=== PATIENT | male | born 1965 | race Caucasian/White ===

== ENCOUNTER → 2016-11-08 | Outpatient (CLI) | payer OTHER | LOC: GMAL 16:18 | PROVIDERS: ATTEND Family Medicine | DX: R74.0 Nonspecific elevation of levels of transaminase and lactic acid dehydrogenase [LDH] (principal) ==

== ENCOUNTER → 2018-08-27 | Outpatient (CLI) | payer BC | LOC: GMAL 11:46 | PROVIDERS: ATTEND Family Medicine | DX: Z00.01 Encounter for general adult medical examination with abnormal findings (principal) ==

== ENCOUNTER 2018-11-30 05:34 | Day surgery (SDC) | payer BC ==
--- NOTE | 2018-11-29 12:24 | SSS ---
CHIEF COMPLAINT: Need for screening colonoscopy. HISTORY OF PRESENT ILLNESS: Mr. Salvador is a 53 year-old male who presents to my office for routine followup. He is due for screening colonoscopy. He has no symptoms referable to his bowels, no abdominal pain, changes in his bowel habits or blood in the stool. He has had no weight related changes. Risks and benefits were discussed and he is agreeable with proceeding. PAST MEDICAL HISTORY: 1. Hyperlipidemia. 2. Hypertension. He had an echocardiogram in December of 2010 that showed an ejection fraction of 69% and moderate left atrial enlargement at 5.1 cm and left ventricular hypertrophy. 3. Chronic knee pain. 4. Type 2 diabetes diagnosed in March of 2011 with a hemoglobin A1c of 6.4. 5. Tension headaches. 6. Obstructive sleep apnea diagnosed in 2010. He does use CPAP. This does help with his blood pressure some but not really his fatigue. PAST SURGICAL HISTORY: 1. Left forearm fracture in the first grade. 2. Three surgeries on his left knee, the first in 1977 when he had ligaments repaired and cartilage removed. The second and third surgeries in 1979 and 1980. He again had cartilage removed and the last one was arthroscopic. 3. Left shoulder surgery by Dr. Macario in 2006. 4. Left total knee arthroplasty by Dr. Alcantara on 11/02/13. This was complicated by decreased range of motion requiring manipulation under anesthesia on 01/07/14. He still has difficulties with range of motion on this knee. CURRENT MEDICATIONS: 1. Hydrochlorothiazide. 2. Lisinopril. 3. Lipitor. 4. Bystolic. 5. Allopurinol. 6. Multivitamins. 7. Potassium 1 a day. ALLERGIES: SULFA. FAMILY HISTORY: Father at 65 from lymphoma. He also had hypertension and borderline diabetes. Mother at 84 from a broken femur. She got out of the hospital and developed rough breathing and later. She had arthritis, hyperlipidemia, hypothyroidism and osteoarthritis. He has 1 brother in good health, 2 sisters in good health and a stepdaughter in good health. SOCIAL HISTORY: He is . 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 He quit smoking around age 23 only having a 7 pack year history. He drinks once per month, typically beer. REVIEW OF SYSTEMS: Negative except as per History of Present Illness. PHYSICAL EXAMINATION: VITAL SIGNS: Blood pressure 124/80, height 6', weight 283. Pulse 68. GENERAL: He is awake and alert in no acute distress. HEENT: Unremarkable. NECK: Supple. CHEST: Lungs are clear. CARDIOVASCULAR: Regular rate and rhythm without appreciable murmurs. ABDOMEN: Benign. EXTREMITIES: Without edema. NEUROLOGIC: Nonfocal. RECTAL: Deferred until time of colonoscopy. ASSESSMENT: 1. Need for screening colonoscopy. PLAN: Colonoscopy on 11/30/18. #[id number] MTDD
[2018-11-30] MEDS ORDERED: LACTATED RINGERS 1,000 ML ONE (06:48)
[2018-11-30] MEDS ORDERED: fentaNYL CITRATE INJ 50 MCG/ML AMP ONE (07:23)
[2018-11-30] MEDS ORDERED: MIDAZOLAM INJ 2 MG/2 ML VIAL ONE (07:23)
[2018-11-30 08:24] VITALS: O2SAT 94
[2018-11-30 08:52] VITALS: BP 117/81; TEMP 97.1
--- NOTE | 2018-11-30 09:11 | OP ---
DATE OF PROCEDURE: 11/30/18 PREOPERATIVE DIAGNOSIS: 1. Screening colonoscopy. POSTOPERATIVE DIAGNOSIS: 1. Normal colon to the cecum. 2. Poor prep in the proximal half of the colon. 3. Grade 1 to 2 internal hemorrhoids. PROCEDURE: 1. Colonoscopy. SURGEON: Matthieu Kovacs MD. ESTIMATED BLOOD LOSS: None. COMPLICATIONS: No immediate complications. ANESTHESIA: Propofol 300 mg, Versed 2 mg and fentanyl 1 mL administered intravenously via Fly Castillo CRNA. TECHNIQUE: After informed consent was obtained from the patient, the patient was taken to the Endoscopy Suite and placed in the left lateral decubitus position. Incremental doses of medications were given intravenously until adequate sedation was obtained. Digital rectal examination was performed. The prostate was rather high and only the bottom half could be felt easily, but it was small and normal feeling. Vital signs were monitored throughout the procedure. Supplemental oxygen was administered throughout the procedure. After digital rectal exam was performed, the colonoscope was then advanced into the patient's rectum and up through the sigmoid, descending, transverse and ascending colon to the level of the cecum. A little bit of manual abdominal pressure needed to be applied to fully reach the cecum, but the loop was gotten out. From about the proximal transverse colon to the cecum, the prep was quite poor. There was not a lot of solid stool, but there was copious amount of liquid stool that was thick and stuck to the jerome, making efforts to wash it off in an efficient manner nearly impossible. There was a great deal of this in the cecum. Some of this was washed out and suctioned out to try to get a better look. The appendiceal orifice was noted and photographed. The terminal ileum was also seen, but could not be entered despite several attempts. The colonoscope was then slowly withdrawn taking great care to visualize all jerome of the colon in a 360 degree fashion. I am confident that no significantly large polyps were missed, though there could have been some in the 1 to 2 cm range that may have been covered by liquid stool. In the distal half of the colon, the prep was actually quite good and I feel confident here that no polyps greater than 1 cm were missed. There was no significant diverticulosis. The scope was retroflexed in the rectum and grade 1 to 2 internal hemorrhoids were noted. The colonoscope was then unretroflexed and air was suctioned out of the patient's rectum. The patient tolerated the procedure well and was taken back to the recovery area in good condition. PLAN: He is to followup in my office for routine followup in about 6 months. I am going to repeat his colonoscopy in approximately 5 years secondary to the poor proximal prep. #[id number] RAKESH
[2018-11-30] MEDS ORDERED: PROPOFOL 200 MG/20 ML VIAL IV ONE (10:00)
[2018-11-30] MEDS ORDERED: LIDOCAINE 1% 10 ML VIAL INJ ONE (10:00)
== END 2018-11-30 08:50 | disposition home or self-care (01) ==
LOC: AMB 05:34
PROVIDERS: ATTEND Family Medicine
DX: Z12.11 Encounter for screening for malignant neoplasm of colon (principal); K64.1 Second degree hemorrhoids; I10 Essential (primary) hypertension; E11.9 Type 2 diabetes mellitus without complications; E66.9 Obesity, unspecified; E78.5 Hyperlipidemia, unspecified; G89.29 Other chronic pain; M25.569 Pain in unspecified knee; G47.33 Obstructive sleep apnea (adult) (pediatric); Z99.89 Dependence on other enabling machines and devices; Z96.652 Presence of left artificial knee joint; Z88.2 Allergy status to sulfonamides; Z87.891 Personal history of nicotine dependence; Z79.84 Long term (current) use of oral hypoglycemic drugs; Z79.899 Other long term (current) drug therapy
CPT/HCPCS: 00812; 45378; 82948; J2250; J3010; J3490; J7120

== ENCOUNTER → 2019-10-04 | Outpatient (CLI) | payer BC | LOC: GMAL 11:10 | PROVIDERS: ATTEND Family Medicine | DX: Z00.01 Encounter for general adult medical examination with abnormal findings (principal); D51.3 Other dietary vitamin B12 deficiency anemia; E55.9 Vitamin D deficiency, unspecified; Z12.5 Encounter for screening for malignant neoplasm of prostate ==

== ENCOUNTER → 2020-01-11 | Outpatient (CLI) | payer BC | LOC: GMAL 14:06 | PROVIDERS: ATTEND Family Medicine | DX: M10.9 Gout, unspecified (principal); R94.5 Abnormal results of liver function studies; E11.9 Type 2 diabetes mellitus without complications; N18.1 Chronic kidney disease, stage 1 ==